=== PATIENT | male | born 1985 | race Caucasian/White ===

== ENCOUNTER 2023-06-30 16:45 | Emergency (ER) | payer OTHER ==
[2023-06-30 16:51] VITALS: TEMP 98.2
[2023-06-30] MEDS ORDERED: KETOROLAC 15 MG/ML 1 ML VIAL IM STA (17:06)
[2023-06-30] MEDS ORDERED: ORPHENADRINE 30 MG/ML 2 ML VIAL IM STA (17:07)
--- NOTE | 2023-06-30 17:10 | ED ---
Back Pain HPI - General Chief Complaint: Back Pain/Injury Stated Complaint: Neck and Back Pain Time Seen by Provider: 06/30/23 16:53 Source: patient Limitations: no limitations - History of Present Illness Initial Comments: 37-year-old male presents to the ED with a chief complaint of shoulder/neck pain. 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 States 3 days ago started to experience pain of his neck and upper back. States that he saw his PCP for this and then followed with a chiropractor. States that he had his back and neck adjusted with no relief. Has also been using ibuprofen and Tylenol with no relief. Denies any known injury but states that he is active with his jobs. Denies weakness, numbness or tingling. No Other complaints. - Related Data Previous Rx's Medication Instructions Recorded methocarbamoL [Methocarbamol] 750 mg PO QID PRN #12 tablet 06/30/23 Allergies Allergy/AdvReac Type Severity Reaction Status Date / Time sulfamethoxazole Allergy Rash/Hives Verified 06/30/23 16:51 [From Bactrim] trimethoprim [From Bactrim] Allergy Rash/Hives Verified 06/30/23 16:51 Review of Systems ROS Statement: Those systems with pertinent positive or pertinent negative responses have been documented in the HPI. ROS Other: All systems not noted in ROS Statement are negative. Past Medical History Past Medical History: Diabetes Mellitus History of Any Multi-Drug Resistant Organisms: None Reported Past Surgical History: No Surgical Hx Reported Past Psychological History: No Psychological Hx Reported Smoking Status: Current every day smoker Past Alcohol Use History: None Reported Past Drug Use History: Marijuana General Exam Limitations: no limitations General appearance: alert Head exam: Present: atraumatic, normocephalic Neck exam: Present: other (No midline cervical spinal tenderness palpation) Respiratory exam: Present: normal lung sounds bilaterally Cardiovascular Exam: Present: regular rate, normal rhythm GI/Abdominal exam: Present: soft Extremities exam: Present: other (Strength and sensation equal and symmetric in bilateral upper and lower extremities. Pain reproduced with external rotation of the left arm. Radial pulses 2+.) Neurological exam: Present: alert, oriented X3 Skin exam: Present: warm, dry Course Vital Signs 06/30/23 16:49 Temperature 98.2 F Pulse Rate 111 H Respiratory 22 Rate Blood Pressure 173/105 O2 Sat by Pulse 99 Oximetry Medical Decision Making - Medical Decision Making Was pt. sent in by a medical professional or institution (JAMIL Barry, NUTRITION MANAGER, urgent care, hospital, or care home...) When possible be specific @ -No Did you speak to anyone other than the patient for history (EMS, parent, family, police, friend...)? What history was obtained from this source @ -No Did you review nursing and triage notes (agree or disagree)? Why? @ -I reviewed and agree with nursing and triage notes Were old charts reviewed (outside hosp., previous admission, EMS record, old EKG, old radiological studies, urgent care reports/EKG's, care home records)? Report findings @ -No old charts were reviewed Differential Diagnosis (chest pain, altered mental status, abdominal pain women, abdominal pain men, vaginal bleeding, weakness, fever, dyspnea, syncope, headache, dizziness, GI bleed, back pain, seizure, CVA, palpatations, mental health, musculoskeletal)? @ -Differential Musculoskeletal Muscular strain, contusion, ligament sprain, fracture, arthritis, septic arthritis, bursitis, cellulitis, muscle spasm, nerve compression, DVT, arterial occlusion, herpes zoster, electrolyte abnormality, tumor.... This is not meant to be in all inclusive list EKG interpreted by me (3pts min.). @ -As above X-rays interpreted by me (1pt min.). @ -X-ray thoracic spine, cervical spine, left shoulder unremarkable for acute process. CT interpreted by me (1pt min.). @ -None done U/S interpreted by me (1pt. min.). @ -None done What testing was considered but not performed or refused? (CT, X-rays, U/S, labs)? Why? @ -None What meds were considered but not given or refused? Why? @ -None Did you discuss the management of the patient with other professionals (professionals i.e. JAMIL Barry, NUTRITION MANAGER, lab, RT, psych nurse, pediatric social worker, software implementation specialist, teacher, minesweeping officer, porter sample case)? Give summary @ -No Was smoking cessation discussed for >3mins.? @ -No Was critical care preformed (if so, how long)? @ -No Were there social determinants of health that impacted care today? How? (Homelessness, low income, unemployed, alcoholism, drug addiction, transportation, low edu. Level, literacy, decrease access to med. care, fpc, rehab)? @ -No Was there de-escalation of care discussed even if they declined (Discuss DNR or withdrawal of care, Hospice)? DNR status @ -No What co-morbidities impacted this encounter? (DM, HTN, Smoking, COPD, CAD, Cancer, CVA, ARF, Chemo, Hep., AIDS, mental health diagnosis, sleep apnea, morbid obesity)? @ -None Was patient admitted / discharged? Hospital course, mention meds given and route, prescriptions, significant lab abnormalities, going to OR and other pertinent info. @ -Discharge. Imaging studies here unremarkable. Patient had good pain control here in the ED. Pain reproducible with external rotation of the arm. Symptoms likely muscular skeletal in nature. Provided prescription for Robaxin. Advised continued use of Vicoprofen and Tylenol. Provided referral to orthopedics. Advised follow-up with PCP as needed. Discussed return precautions with patient who verbalizes agreement. Undiagnosed new problem with uncertain prognosis? @ -No Drug Therapy requiring intensive monitoring for toxicity (Heparin, Nitro, Insulin, Cardizem)? @ -No Were any procedures done? @ -No Diagnosis/symptom? @ -Muscle strain of back/shoulder Acute, or Chronic, or Acute on Chronic? @ -Acute Uncomplicated (without systemic symptoms) or Complicated (systemic symptoms)? @ -Uncomplicated Side effects of treatment? @ -No Exacerbation, Progression, or Severe Exacerbation? @ -No Poses a threat to life or bodily function? How? (Chest pain, [place], [place], pneumonia, PE, COPD, DKA, ARF, appy, cholecystitis, CVA, Diverticulitis, Homicidal, Suicidal, threat to staff... and all critical care pts) @ -No Disposition Clinical Impression: Muscle strain, Rotator cuff (capsule) sprain Disposition: HOME SELF-CARE Condition: Good Instructions (If sedation given, give patient instructions): Rotator Cuff Injury (ED) Additional Instructions: Please return to the Emergency Department if symptoms worsen or any other concerns. Prescriptions: methocarbamoL [Methocarbamol] 750 mg PO QID PRN #12 tablet PRN Reason: Pain Is patient prescribed a controlled substance at d/c from ED?: No Referrals: Gil Giang DO [Primary Care Provider] - 1-2 days Time of Disposition: 18:50
--- NOTE | 2023-06-30 18:07 | XR ---
EXAMINATION TYPE: XR cervical spine 5 views comp, XR thoracic spine 3 views, XR shoulder complete 3 v iews LT DATE OF EXAM: 06/30/2023 COMPARISON: None HISTORY: 37-year-old male with neck and left shoulder pain since Sunday FINDINGS: Cervical spine: No predental space widening or prevertebral soft tissue swelling. Alignment is maintained as are disc interspaces. There is some straightening of the normal cervical lordosis. No significant bony neurof oraminal narrowing seen on either side normal odontoid view. Thoracic spine: 12 rib-bearing thoracic vertebral bodies. Slight levoconvex curvature centered along the lower thoracic spine. All pedicles are visualized. Mild degenerative disc disease midthoracic spi ne. Vertebral body heights are preserved and alignment is maintained. Left shoulder: There is prominent degenerative spurring at the AC joint. Mild capsular hypertrophy here. Prominent s uperior spurring from the distal clavicle. Subacromial space is preserved. No acute fracture, subluxa tion, dislocation. IMPRESSION: 1. Cervical spine: No acute fracture, prevertebral soft tissue swelling, or malalignment seen. 2. Thoracic spine: Mild degenerative disc disease midthoracic spine. No vertebral compression collaps e or malalignment. 3. Left shoulder: Mild AC joint OA. Prominent superior degenerative spurring. Some mild overlying sof t tissue swelling. Query any focal pain here that would suggest an acute exacerbation of OA. No acute osseous abnormality otherwise seen.
[2023-06-30] MEDS ORDERED: MORPHINE SULFATE 4 MG/ML SYRINGE IM STA (18:58)
[2023-06-30] MEDS ORDERED: ACET/COD 300 MG/30 MG STARTER PACK 6 TAB BTL PO STA (18:58)
[2023-06-30 19:24] VITALS: BP 139/80; PULSE 82; RESP 18
== END 2023-06-30 19:24 | disposition home or self-care (01) ==
LOC: EC 16:45
DX: S43.422A Sprain of left rotator cuff capsule, initial encounter (principal); M51.34 Other intervertebral disc degeneration, thoracic region; E11.9 Type 2 diabetes mellitus without complications; F17.200 Nicotine dependence, unspecified, uncomplicated; F12.90 Cannabis use, unspecified, uncomplicated; Z88.2 Allergy status to sulfonamides; Z88.1 Allergy status to other antibiotic agents; X58.XXXA Exposure to other specified factors, initial encounter
CPT/HCPCS: 72070; 72050; 73030; 99283; 96372 ×3; J2270; J2360; J1885

== ENCOUNTER 2023-09-11 06:48 | Day surgery (SDC) | payer OTHER ==
[2023-09-11 07:16] LABS: Glucose,Whole Blood 239 mg/dL (70-110)
[2023-09-11 07:18] VITALS: TEMP 97
[2023-09-11] MEDS ORDERED: DEXAMETHASONE SOD PHOSPHATE 10 MG/ML 1 ML VIAL ONE (07:39)
[2023-09-11] MEDS ORDERED: IOPAMIDOL M200 10 ML VIAL ONE (07:39)
--- NOTE | 2023-09-11 07:47 | P.PCN ---
Date of Procedure: 09/11/23 Description of Procedure: PROCEDURE 1. Cervical epidural steroid injection under fluoroscopic guidance, C6-C7 2. Cervical epidurogram. PREOPERATIVE DIAGNOSIS: Cervical radiculopathy POSTOPERATIVE DIAGNOSIS: Cervical radiculopathy Imaging: Fluoroscopy was used, images where saved to the medical record ANESTHESIA: Local only PROCEDURE DESCRIPTION / TECHNIQUE: The patient was seen and identified in the preoperative area. Risks, benefits, and alternatives were discused with the patient and the patient has consented to the procedure. Risks of the procedure include potential for bleeding, infection, nerve damage, and incomplete pain relief were discussed with the patient. All questions were answered for the patient Patient was taken to the OR and time out was completed. The patient was placed in the prone position on the procedure table. A pillow was placed under the patients chest to increase the cervical interlaminar space. The cervical area was prepped and draped in the usual sterile fashion. Vital signs were closely monitored during the procedure. Using anterior-posterior fluoroscopy, the C7-T1 interlaminar space was identified and the skin over this site was marked and then infiltrated with 1% lidocaine subcutaneously. Subsequently, a 20-gauge 3-1/2-inch Tuohy epidural needle was inserted and advanced toward the epidural space by means of the [id number] technique and guided by AP and lateral fluoroscopy. The correct needle position in the epidural space was verified with the injection of 1 mL of the water soluble contrast dye Isovue-180 and observing an excellent epidurogram with the epidural spread of the dye, after negative aspiration for blood and CSF and in the absence of paresthesias. Again after negative aspiration, a mixture containing 10 mg Dexamethasone and 1 ml of preservative- free normal saline injected and a washout of epidurogram was seen. Needle was withdrawn intact, skin was cleansed, and bandages were applied. Complications: none. Disposition: patient was placed in supine position and transferred to the recovery room area in stable condition and there was no evidence of upper or lower extremity motor or sensory deficit after the procedure patient was discharged from recovery room after discharge criteria met and home discharge instructions was given by the staff and patient will follow with the pain as directed.
[2023-09-11 07:57] VITALS: PULSE 94
[2023-09-11 08:17] VITALS: BP 133/70; RESP 18
--- NOTE | 2023-09-11 08:54 | FL ---
Intraoperative/procedural fluoroscopic services were provided for cervical epidural steroid injection . Total fluoroscopy time is 14.9 seconds with a total of 2 submitted images to PACS. Total DAP 0.0577 6 mGym2. Please see the operative note for further details.
== END 2023-09-11 08:19 | disposition home or self-care (01) ==
LOC: ORPAIN 06:48
PROVIDERS: ATTEND Hospitalist
DX: M54.12 Radiculopathy, cervical region (principal); Z88.2 Allergy status to sulfonamides
CPT/HCPCS: 62321; J1100; Q9966

== ENCOUNTER → 2023-10-08 | Outpatient (CLI) | payer OTHER ==
[2023-10-08 10:03] VITALS: BP 184/115; PULSE 101; RESP 15; TEMP 98.6
--- NOTE | 2023-10-08 12:31 | P.PAINPG ---
PQRS Measure Charge Sheet Comment: HISTORY OF PRESENT ILLNESS: 37 yr old male presents today w severe and chronic neck pain x 2 mo secondary to DDD, spondylosis and facet arthropathy without myelopathy for evaluation s/p SY C6-C7 #1. Pt states he experienced 80% pain releif x 4 wks s/p procedure. Pt states pain level is provoked at 0 /10 in intensity. Pain is alleviated by injections, PT x 6 wks in 2021, physician guided home exercises every morning since 2021, heat, ice, topical CBD oil, chiropractic treatments w massage semi monthly which he is currently in, repositioning and rest. Oswestry axial pain score at 30. Interventional procedures include SY C6-C7 x1 Medications include CBD oil REVIEW OF ORGAN SYSTEMS: CONSTITUTIONAL: No fevers or chills. No recent weight loss. NEUROLOGICAL: + numbness and tingling along the distal extremities. No seizure disorders or headaches. MUSCULOSKELETAL: + pain PSYCHIATRIC: Denies current depression or suicidal thoughts. Physical Examinations : Constitutional : Cooperative , not in acute distress . Neurologic : Cranial nerve II to XII intact. No focal neurological deficits. Psychiatric : alert & oriented x 3. Matching mood & appropriate affect. Judgment & insight intact. Musculoskeletal : Cervical Spine Motor strength in the deltoid and biceps: Normal right side. Normal Left side Motor strength biceps and the wrist extensors: Normal right side . Normal left side Motor strength in the triceps muscle: Normal right side. Normal left side Deep tendon reflexes: Normal at the biceps. Normal at Brachioradialis. Normal at triceps Vertebral body tenderness to deep palpation over C6 Cervical facet loading test: positive bilaterally Spurling test: positive L C6-C7 Neck distraction test: positive bilaterally Rick sign: positive bilaterally Lumbar spine Motor strength lower extremities ,thigh and legs 5/5 Right side , 5/5 Left side Deep tendon reflexes : Normal Knee Jerk. Normal Ankle Jerk Vertebral body tenderness over Chavez Test positive Lumbar facet Loading Test: positive Right / positive Left Range of motion of the lumbar spine Flexion 30 degrees, extension 10 degrees Straight Leg Raise test: Left/ Right positive at degree Arturo test: positive right / positive left. Severe tenderness over the Sacroiliac joint on the Right / Left sides Gaenslen test: positive bilaterally Seated flexion test: positive bilaterally. Sacral spine : Severe tenderness over the Sacroiliac joint: right side / left side Range of motion: Flexion of the lumbar spine <60 degrees Range of motion: Extension of the lumbar spine <20 degrees Gaenslen's Test positive Artur's Test positive Arturo test: positive right side / left side Thigh Thrust Test Sacral Thrust Test Imaging: MRI non contrast of the cervical spine from 07/20/23 reviewed Assessment/ Plan : Cervical DDD Will manage residual pain and may RTC on an as needed basis. All questions answered. I have spent greater than 30 minutes on patient care today. Dr Montenegro was available by phone for the evaluation of this patient. The time was used to review the medical records including relevant urine studies and Prescription history (MAPs), review of the available imaging, evaluation and examination of the patient, coordination of care with the medical staff and if applicable referring physicians, as well as creation of the medical record PQRS Narrative: Hx Alcohol Use (MH) No Home Medications: Ambulatory Orders Semaglutide [Ozempic] 4 mg SQ WEEKLY 09/06/23 amLODIPine BESYLATE/BENAZEPRIL [amLODIPine BESYLATE/BENAZEPRIL 5-10 mg] 1 tab PO DAILY 09/06/23 Cyclobenzaprine [Flexeril] 10 mg PO DAILY PRN 09/11/23 Controlled Substance Measures - Controlled Substance Measures Is patient prescribed a controlled substance at discharge?: No
== END ==
LOC: PNWHC3 09:02
PROVIDERS: ATTEND Specialist
DX: M50.323 Other cervical disc degeneration at C6-C7 level (principal); Z88.2 Allergy status to sulfonamides
CPT/HCPCS: 99211

== ENCOUNTER → 2023-12-13 | Outpatient (CLI) | payer OTHER ==
[2023-12-13 08:46] VITALS: BP 165/125; PULSE 99; RESP 15; TEMP 97.8
--- NOTE | 2023-12-17 07:49 | P.PAINPG ---
Objective - Vital Signs Vital signs: Intake & Output 12/12/23 12/13/23 12/13/23 18:59 06:59 18:59 Weight 295 kg PQRS Measure Charge Sheet Comment: HISTORY OF PRESENT ILLNESS: A 38 yr old male presents today w severe and chronic neck pain x 6 mo secondary to DDD, spondylosis and facet arthropathy without myelopathy for evaluation. Pt states pain level is provoked at 7 /10 in intensity, intermittent, predominantly axial, achy in character w radiation of pain towards the UEs, L > R. Pain is alleviated by injections, PT x 6 wks in 2021, physician guided home exercises every morning since 2021, heat, ice, THC products, topical CBD oil, chiropractic treatments w massage semi monthly x 3 mo which ended in Sep 2023, repositioning and rest. Cervical disability score at 30. Interventional procedures include SY C6-C7 x1 Medications include CBD oil REVIEW OF ORGAN SYSTEMS: CONSTITUTIONAL: No fevers or chills. No recent weight loss. NEUROLOGICAL: + numbness and tingling along the distal extremities. No seizure disorders or headaches. MUSCULOSKELETAL: + pain PSYCHIATRIC: Denies current depression or suicidal thoughts. Physical Examinations : Constitutional : Cooperative , not in acute distress . Neurologic : Cranial nerve II to XII intact. No focal neurological deficits. Psychiatric : alert & oriented x 3. Matching mood & appropriate affect. Judgment & insight intact. Musculoskeletal : Cervical Spine Motor strength in the deltoid and biceps: Normal right side. Normal Left side Motor strength biceps and the wrist extensors: Normal right side . Normal left side Motor strength in the triceps muscle: Normal right side. Normal left side Deep tendon reflexes: Normal at the biceps. Normal at Brachioradialis. Normal at triceps Vertebral body tenderness to deep palpation over C6 Cervical facet loading test: positive bilaterally Spurling test: positive L C6-C7 Neck distraction test: positive bilaterally Rick sign: positive bilaterally Lumbar spine Motor strength lower extremities ,thigh and legs 5/5 Right side , 5/5 Left side Deep tendon reflexes : Normal Knee Jerk. Normal Ankle Jerk Vertebral body tenderness over Chavez Test positive Lumbar facet Loading Test: positive Right / positive Left Range of motion of the lumbar spine Flexion 30 degrees, extension 10 degrees Straight Leg Raise test: Left/ Right positive at degree Arturo test: positive right / positive left. Severe tenderness over the Sacroiliac joint on the Right / Left sides Gaenslen test: positive bilaterally Seated flexion test: positive bilaterally. Sacral spine : Severe tenderness over the Sacroiliac joint: right side / left side Range of motion: Flexion of the lumbar spine <60 degrees Range of motion: Extension of the lumbar spine <20 degrees Gaenslen's Test positive Artur's Test positive Arturo test: positive right side / left side Thigh Thrust Test Sacral Thrust Test Imaging: MRI non contrast of the cervical spine from 07/20/23 reviewed Assessment/ Plan : Cervical DDD Recommendation of SY C6-C7 #2. May need a series f injections for optimal pain relief. Risks, benefits of procedure discussed and pt verbalized understanding. Protocol for discontinuation/ continuation of medications alfredito procedure d iscussed. Recommendation of medication management. Mobic 7.5mg #60 w 1 RF. Use, side effects, adverse reactions and safe storage discussed. All questions answered. I have spent greater than 30 minutes on patient care today. Dr Montenegro was available by phone for the evaluation of this patient. The time was used to review the medical records including relevant urine studies and Prescription history (MAPs), review of the available imaging, evaluation and examination of the patient, coordination of care with the medical staff and if applicable referring physicians, as well as creation of the medical record - Pain Location Bilateral Neck Non-Pharmacological Interventions: Heat, Inactivity, Position/Reposition Pharmacological Interventions: Epidural, PRN Medication PQRS Narrative: Hx Alcohol Use (MH) No Home Medications: Ambulatory Orders Semaglutide [Ozempic] 4 mg SQ WEEKLY 09/06/23 amLODIPine BESYLATE/BENAZEPRIL [amLODIPine BESYLATE/BENAZEPRIL 5-10 mg] 1 tab PO DAILY 09/06/23 Cyclobenzaprine [Flexeril] 10 mg PO DAILY PRN 09/11/23 Meloxicam [Mobic] 7.5 mg PO BID 30 Days #60 tab 12/13/23 Controlled Substance Measures - Controlled Substance Measures Is patient prescribed a controlled substance at discharge?: No
== END ==
LOC: PNWHC3 08:03
PROVIDERS: ATTEND Specialist
DX: E11.9 Type 2 diabetes mellitus without complications (principal); M50.123 Cervical disc disorder at C6-C7 level with radiculopathy; Z88.2 Allergy status to sulfonamides; M47.22 Other spondylosis with radiculopathy, cervical region; Z79.85 Long-term (current) use of injectable non-insulin antidiabetic drugs
CPT/HCPCS: 99211

== ENCOUNTER 2023-12-25 07:39 | Day surgery (SDC) | payer OTHER ==
[~2023-12-25 07:39] MED LIST: LACTATED RINGERS 1,000 ML IV SCH
[2023-12-25 08:05] VITALS: TEMP 97.7
[2023-12-25 08:08] LABS: Glucose,Whole Blood 226 mg/dL (70-110)
[2023-12-25] MEDS ORDERED: IOPAMIDOL M200 10 ML VIAL ONE (08:21)
[2023-12-25] MEDS ORDERED: DEXAMETHASONE SOD PHOSPHATE 10 MG/ML 1 ML VIAL ONE (08:21)
--- NOTE | 2023-12-25 08:26 | P.PCN ---
Date of Procedure: 12/25/23 Procedure(s) Performed: Cervical epidural steroid injection C6-C7 #2 Description of Procedure: PROCEDURE 1. Cervical epidural steroid injection under fluoroscopic guidance, C6-C7 #2 2. Cervical epidurogram. PREOPERATIVE DIAGNOSIS: Cervical radiculopathy POSTOPERATIVE DIAGNOSIS: Cervical radiculopathy Imaging: Fluoroscopy was used, images where saved to the medical record ANESTHESIA: Local only Zero blood loss PROCEDURE DESCRIPTION / TECHNIQUE: The patient was seen and identified in the preoperative area. Risks, benefits, and alternatives were discused with the patient and the patient has consented to the procedure. Risks of the procedure include potential for bleeding, infection, nerve damage, and incomplete pain relief were discussed with the patient. All questions were answered for the patient Patient was taken to the OR and time out was completed. The patient was placed in the prone position on the procedure table. A pillow was placed under the patients chest to increase the cervical interlaminar space. The cervical area was prepped and draped in the usual sterile fashion. Vital signs were closely monitored during the procedure. Using anterior-posterior fluoroscopy, the C6-C7 interlaminar space was identified and the skin over this site was marked and then infiltrated with 1% lidocaine subcutaneously. Subsequently, a 20-gauge 3-1/2-inch Tuohy epidural needle was inserted and advanced toward the epidural space by means of the [id number] technique and guided by AP and lateral fluoroscopy. The correct needle position in the epidural space was verified with the injection of 1 mL of the water soluble contrast dye Isovue-180 and observing an excellent epidurogram with the epidural spread of the dye, after negative aspiration for blood and CSF and in the absence of paresthesias. Again after negative asp iration, a mixture containing 10 mg Dexamethasone and 2 ml of preservative-free normal saline injected and a washout of epidurogram was seen. Needle was withdrawn intact, skin was cleansed, and bandages were applied. Complications: none. Disposition: patient was placed in supine position and transferred to the recovery room area in stable condition and there was no evidence of upper or lower extremity motor or sensory deficit after the procedure patient was discharged from recovery room after discharge criteria met and home discharge instructions was given by the staff and patient will follow with the pain as directed.
[2023-12-25 08:36] VITALS: BP 126/87; PULSE 100; RESP 16
--- NOTE | 2023-12-25 09:06 | FL ---
Fluoroscopy History: CAYLA 8 SEC [place] .[id number] DAP DOSE
== END 2023-12-25 08:47 | disposition home or self-care (01) ==
LOC: ORPAIN 07:39
PROVIDERS: ATTEND Hospitalist
DX: M54.12 Radiculopathy, cervical region (principal); E11.9 Type 2 diabetes mellitus without complications; Z88.1 Allergy status to other antibiotic agents; Z88.2 Allergy status to sulfonamides
CPT/HCPCS: 62321; J1100; Q9966

== ENCOUNTER 2024-08-22 22:02 | Emergency (ER) | payer SELFPAY ==
[2024-08-22 22:11] VITALS: TEMP 97.9
--- NOTE | 2024-08-22 22:45 | ED ---
Skin/Abscess/FB HPI - General Chief complaint: Skin/Abscess/Foreign Body Stated complaint: Abcess Time Seen by Provider: 08/22/24 22:22 Source: patient, RN notes reviewed Mode of arrival: ambulatory Limitations: no limitations - History of Present Illness Initial comments: 38-year-old male with history of diabetes and hypertension presenting to the ER for left-sided scrotal abscess x 3 days. Patient states he has a history of frequent scrotal abscesses over the years. States he was treated with Bactrim for a right sided scrotal abscess 1 week ago, states he finished Bactrim today. States he has had cultures sent in the past which returned negative for MRSA. Denies fever, chills, vomiting, urinary symptoms, penile discharge - Related Data Home Medications Medication Instructions Recorded Confirmed Semaglutide [Ozempic] 4 mg SQ MERRITT 09/06/23 12/25/23 amLODIPine BESYLATE/BENAZEPRIL 1 tab PO DAILY 09/06/23 12/25/23 [amLODIPine BESYLATE/BENAZEPRIL 5-10 mg] Cyclobenzaprine [Flexeril] 10 mg PO DAILY PRN 09/11/23 12/25/23 Previous Rx's Medication Instructions Recorded Meloxicam [Mobic] 7.5 mg PO BID 30 Days #60 tab 12/13/23 Mupirocin 2% Oint [Bactroban 2% 1 applic TOPICAL TID #22 gm 08/22/24 Oint] clindamycin HCL 300 mg PO QID 7 Days #28 cap 08/22/24 Allergies Allergy/AdvReac Type Severity Reaction Status Date / Time sulfamethoxazole Allergy Rash/Hives Verified 08/22/24 22:11 [From Bactrim] trimethoprim [From Bactrim] Allergy Rash/Hives Verified 08/22/24 22:11 Review of Systems ROS Statement: Those systems with pertinent positive or pertinent negative responses have been documented in the HPI. ROS Other: All systems not noted in ROS Statement are negative. Past Medical History Past Medical History: Diabetes Mellitus, Hypertension History of Any Multi-Drug Resistant Organisms: None Reported Past Surgical History: No Surgical Hx Reported Past Anesthesia/Blood Transfusion Reactions: No Reported Reaction Additional Past Anesthesia/Blood Transfusion Reaction / Comment(s): never had anesthesia Past Psychological History: No Psychological Hx Reported Smoking Status: Current every day smoker Past Alcohol Use History: None Reported Past Drug Use History: None Reported General Exam Limitations: no limitations General appearance: alert, in no apparent distress Head exam: Present: atraumatic, normocephalic, normal inspection Eye exam: Present: normal appearance, PERRL, EOMI. Absent: scleral icterus, conjunctival injection, periorbital swelling exam: Present: other (FINAL DRESSING CUTTER Stacey present for examination. There is a 2 x 2 cm area of induration and erythema posterior to left scrotum. No fluctuant masses or active drainage. No scrotal edema or erythema.). Absent: testicular tenderness, scrotal swelling Neurological exam: Present: alert, oriented X3 Psychiatric exam: Present: normal affect, normal mood Skin exam: Present: warm, dry, intact, normal color. Absent: rash Course Vital Signs 08/22/24 08/22/24 22:09 22:56 Temperature 97.9 F Pulse Rate 118 H 104 H Respiratory 18 16 Rate Blood Pressure 149/93 146/91 O2 Sat by Pulse 98 96 Oximetry Medical Decision Making - Medical Decision Making Was pt. sent in by a medical professional or institution (, PA, FISCAL ANALYST, urgent care, hospital, or jail...) When possible be specific @ -No Did you speak to anyone other than the patient for history (EMS, parent, family, police, friend...)? What history was obtained from this source @ -No Did you review nursing and triage notes (agree or disagree)? Why? @ -I reviewed and agree with nursing and triage notes Were old charts reviewed (outside hosp., previous admission, EMS record, old EKG, old radiological studies, urgent care reports/EKG's, jail records)? Report findings @ -No old charts were reviewed Differential Diagnosis (chest pain, altered mental status, abdominal pain women, abdominal pain men, vaginal bleeding, weakness, fever, dyspnea, syncope, headache, dizziness, GI bleed, back pain, seizure, CVA, palpatations, mental health, musculoskeletal)? @ -Differential Musculoskeletal Abscess, cellulitis, testicular torsion, epididymitis, muscular strain, contusion, ligament sprain, fracture, arthritis, septic arthritis, bursitis, cellulitis, muscle spasm, nerve compression, DVT, arterial occlusion, herpes zoster, electrolyte abnormality, tumor.... This is not meant to be in all inclusive list EKG interpreted by me (3pts min.). @ -None X-rays interpreted by me (1pt min.). @ -None done CT interpreted by me (1pt min.). @ -None done U/S interpreted by me (1pt. min.). @ -None done What testing was considered but not performed or refused? (CT, X-rays, U/S, labs)? Why? @ -Ultrasound considered however deferred at this time as there are no red flag symptoms such as scrotal edema or erythema What meds were considered but not given or refused? Why? @ -None Did you discuss the management of the patient with other professionals (professionals i.e. DrNerissa, PA, FISCAL ANALYST, lab, RT, psych nurse, health care social worker, cork tipper, teacher, accounting officer, case management assistant)? Give summary @ -No Was smoking cessation discussed for >3mins.? @ -No Was critical care preformed (if so, how long)? @ -No Were there social determinants of health that impacted care today? How? (Homelessness, low income, unemployed, alcoholism, drug addiction, transportation, low edu. Level, literacy, decrease access to med. care, senior living, rehab)? @ -No Was there de-escalation of care discussed even if they declined (Discuss DNR or withdrawal of care, Hospice)? DNR status @ -No What co-morbidities impacted this encounter? (DM, HTN, Smoking, COPD, CAD, Canc er, CVA, ARF, Chemo, Hep., AIDS, mental health diagnosis, sleep apnea, morbid obesity)? @ -None Was patient admitted / discharged? Hospital course, mention meds given and route, prescriptions, significant lab abnormalities, going to OR and other pertinent info. @ -Discharged. This is a 38-year-old male with history of diabetes presenting with scrotal abscess x 3 days. Patient has a history of frequent scrotal abscesses and reports this feels similar. Patient was recently on Bactrim for different scrotal abscess. Denies testicular pain or swelling. Upon examination, there is a 2 x 2 cm area of erythema and induration posterior to the left scrotum. Patient prefers to trial oral antibiotics before incision and drainage. I believe this is reasonable at this time as there are no red flag symptoms or fluctuant masses. First dose of clindamycin given the ER, prescribed 7-day course of clindamycin to pharmacy. Supportive care discussed such as warm compresses 3 times daily. Return precautions discussed in detail, patient conveys understanding and agrees to plan. Advise close follow-up with PCP in 1 to 3 days for reevaluation. Case was discussed with my ED attending Dr. Dang. Patient stable at time of discharge. Undiagnosed new problem with uncertain prognosis? @ -No Drug Therapy requiring intensive monitoring for toxicity (Heparin, Nitro, Insulin, Cardizem)? @ -No Were any procedures done? @ -No Diagnosis/symptom? @ -Scrotal abscess Acute, or Chronic, or Acute on Chronic? @ -Acute Uncomplicated (without systemic symptoms) or Complicated (systemic symptoms)? @ - uncomplicated Side effects of treatment? @ -No Exacerbation, Progression, or Severe Exacerbation? @ -No Poses a threat to life or bodily function? How? (Chest pain, [place], [place], pneumonia, PE, COPD, DKA, ARF, appy, cholecystitis, CVA, Diverticulitis, Homicidal, Suicidal, threat to staff... and all critical care pts) @ -Not at this time Disposition Clinical Impression: Scrotal abscess Disposition: HOME SELF-CARE Condition: Stable Instructions (If sedation given, give patient instructions): Abscess (ED) Additional Instructions: Take antibiotic as prescribed. Use warm compresses to affected area 3 times daily. Follow-up with PCP/dermatology as discussed. Please return to the Emergency Department if symptoms worsen or any other concerns. Prescriptions: Mupirocin 2% Oint [Bactroban 2% Oint] 1 applic TOPICAL TID #22 gm clindamycin HCL 300 mg PO QID 7 Days #28 cap Is patient prescribed a controlled substance at d/c from ED?: No Referrals: Gil Giang DO [Primary Care Provider] - 1-2 days Time of Disposition: 22:45
[2024-08-22] MEDS: CLINDAMYCIN 150 MG CAP PO STA (22:53)
[2024-08-22 22:58] VITALS: BP 146/91; PULSE 104; RESP 16
== END 2024-08-22 22:56 | disposition home or self-care (01) ==
LOC: EC 22:02
CPT/HCPCS: 99283